=== PATIENT | female | born 1975 | race Caucasian/White ===

== ENCOUNTER → 2024-04-17 09:36 | Outpatient (REF) | payer BC, SELFPAY | LOC: WDC 09:36 | PROVIDERS: ATTENDING PHYSICIAN Nurse Practitioner Adult Health; FAMILY PHYSICIAN Physician Assistant Medical | DX: N63.20 Unspecified lump in the left breast, unspecified quadrant (principal); N63.22 Unspecified lump in the left breast, upper inner quadrant | CPT/HCPCS: 76642; 77062; 77066 ==